=== PATIENT | female | born 1960 | race Caucasian/White ===

== ENCOUNTER 2018-08-22 15:09 | Emergency (ER) | payer BC, OTHER ==
--- NOTE | 2018-08-22 16:19 | CT ---
EXAMINATION TYPE: CT brain wo con DATE OF EXAM: 08/22/2018 HISTORY: Left frontal injury with headache. CT DLP: 1109.4 mGycm. Automated Exposure Control for Dose Reduction was Utilized. TECHNIQUE: CT scan of the head is performed without contrast. COMPARISON: None. FINDINGS: There is no acute intracranial hemorrhage or midline shift identified. There is diffuse v entricular and sulcal prominence consistent with mild diffuse age-related cerebral atrophy. Gee-whit e matter differentiation is maintained. There is prominence of CSF in the posterior aspect of the pos terior fossa without cerebellar volume loss. Suspect arachnoid cyst or megacisterna magna. Correlatio n with old outside CT or MRI would be beneficial. The globes are intact and the visualized sinuses ar e clear. There is small to moderate-sized acute left frontal scalp hematoma near axial image 35. Ad jacent calvarium is intact. IMPRESSION: No acute intracranial hemorrhage or midline shift. Small to moderate-sized acute left fr ontal scalp hematoma.
--- NOTE | 2018-08-22 16:33 | ED ---
General Adult HPI - General Chief complaint: Head Injury Stated complaint: Fall, head injury Time Seen by Provider: 08/22/18 15:23 Source: patient, RN notes reviewed Mode of arrival: ambulatory Limitations: no limitations - History of Present Illness Initial comments: Patient's a 58-year-old female presented to the emergency room today with a chief complaint of a head injury that occurred approximately 2 hours ago. Patient states that she was in the house when she tripped over a rock fall and 14 her head on the door jam. Patient does admit that she did not lose consciousness. She states that she does have some swelling to the left side of the forehead. She does admit to a mild headache. She states she did feel nauseous and wasn't dizzy a little bit. She states the symptoms have improved. States headache is gone. She states for is tender to palpation. She denies any other points or symptoms at this time. Patient denies any recent fever, chills, shortness of breath, chest pain, back pain, abdominal pain, nausea or vomiting, numbness or tingling, dysuria or hematuria, constipation or diarrhea, or any other complaints. - Related Data Home Medications Medication Instructions Recorded Confirmed Amitriptyline HCl [Elavil] 50 mg PO HS 08/22/18 08/22/18 Ergocalciferol [Vitamin D2] 50,000 unit PO ZIMMERMAN 08/22/18 08/22/18 Lansoprazole [Prevacid] 15 mg PO HS 08/22/18 08/22/18 Meloxicam 15 mg PO HS 08/22/18 08/22/18 Venlafaxine HCl [Effexor XR] 150 mg PO HS 08/22/18 08/22/18 cloNIDine HCL [Catapres] 0.1 mg PO HS 08/22/18 08/22/18 Allergies Allergy/AdvReac Type Severity Reaction Status Date / Time No Known Allergies Allergy Verified 08/22/18 16:07 Review of Systems ROS Statement: Those systems with pertinent positive or pertinent negative responses have been documented in the HPI. ROS Other: All systems not noted in ROS Statement are negative. Past Medical History Past Medical History: No Reported History History of Any Multi-Drug Resistant Organisms: None Reported Past Surgical History: Hysterectomy, Orthopedic Surgery Additional Past Surgical History / Comment(s): right rotator cuff repair Past Psychological History: Anxiety Smoking Status: Never smoker Past Alcohol Use History: Occasional Past Drug Use History: None Reported General Exam - General Exam Comments Initial Comments: General: The patient is awake and alert, in no distress, and does not appear acutely ill. Eye: Pupils are equal, round and reactive to light. Extra-ocular movements are intact. No nystagmus. There is normal conjunctiva bilaterally. No signs of icterus. Ears, nose, mouth and throat: There are moist mucous membranes and no oral lesions. Neck: The neck is supple, there is no tenderness or JVD. Cardiovascular: There is a regular rate and rhythm. No murmur, rub or gallop is appreciated. Respiratory: Lungs are clear to auscultation, respirations are non-labored, breath sounds are equal. No wheezes, stridor, rales, or rhonchi. Musculoskeletal: Normal ROM, no tenderness. Sensation intact. Strength 5/5. Pulses equal bilaterally 2+. Neurological: A&O x 3. CN II-XII intact, There are no obvious motor or sensory deficits. Coordination appears grossly intact. Speech is normal. Normal finger to nose testing. Normal rapid alternating movements. Strength 5/5 bilaterally both upper and lower extremity's. Normal gait. Skin: Skin is warm and dry and no rashes or lesions are noted. Psychiatric: Cooperative, appropriate mood & affect, normal judgment. Limitations: no limitations Course Vital Signs 08/22/18 15:25 Temperature 98.1 F Pulse Rate 94 Respiratory 18 Rate Blood Pressure 181/90 O2 Sat by Pulse 98 Oximetry Medical Decision Making - Medical Decision Making Computed tomography scan reviewed and negative for any acute abnormality other than frontal hematoma to scalp. Patient is well at this time. Normal neurological exam will be discharged home. Signs and symptoms of concussion were discussed in detail. She is advised to refrain from any physical activity and follow-up the family doctor over the next 2 days. Advised return if symptoms increase or worsen appropriate concerns. Disposition Clinical Impression: Hematoma of scalp, Concussion Disposition: HOME SELF-CARE Condition: Good Instructions: Concussion (ED) Additional Instructions: Please follow-up with family doctor in the next 2 days. Please return to emergency room if the symptoms increase or worsen or for any other concerns. Is patient prescribed a controlled substance at d/c from ED?: No Referrals: Milagro Winslow DO [Primary Care Provider] - 1-2 days Time of Disposition: 16:32
[2018-08-22 16:35] VITALS: BP 171/90; PULSE 87; RESP 18
[2018-08-22 16:40] VITALS: TEMP 97.3
== END 2018-08-22 16:39 | disposition home or self-care (01) ==
LOC: EC 15:09
DX: S06.0X0A Concussion without loss of consciousness, initial encounter (principal); F41.9 Anxiety disorder, unspecified; Z98.890 Other specified postprocedural states; Z79.1 Long term (current) use of non-steroidal anti-inflammatories (NSAID); Z79.899 Other long term (current) drug therapy; W01.10XA Fall on same level from slipping, tripping and stumbling with subsequent striking against unspecified object, initial encounter; Y92.009 Unspecified place in unspecified non-institutional (private) residence as the place of occurrence of the external cause; Y93.01 Activity, walking, marching and hiking
CPT/HCPCS: 70450; 99283

== ENCOUNTER → 2020-11-19 | Outpatient (CLI) | payer OTHER ==
[2020-11-19 16:42] LABS: Chol/HDL Ratio 4.33; LDL Cholesterol,Calculated 149.6 mg/dL (0.0-131.0); VLDL Calculation 40.4 mg/dL (5.00-40.00)
[2020-11-19 21:10] LABS: Hemoglobin A1C 5.6 % (4.0-6.0)
== END | disposition home or self-care (01) ==
LOC: LABWHC1 10:15
PROVIDERS: ATTEND Physician Assistant Medical
DX: E55.9 Vitamin D deficiency, unspecified (principal); F32.9 Major depressive disorder, single episode, unspecified; Z79.899 Other long term (current) drug therapy
CPT/HCPCS: 36415; 80061; 82306; 83036; 84443; 86850; 86900; 86901

== ENCOUNTER → 2020-11-19 | Outpatient (CLI) | payer OTHER ==
[2020-11-19 11:22] LABS: HCT 39.5 % (34.0-46.0); HGB 12.8 gm/dL (11.4-16.0); MCH 30.7 pg (25.0-35.0); MCHC 32.4 g/dL (31.0-37.0); MCV 94.6 fL (80.0-100.0); Mean Platelet Volume 8.3; Platelet Count 214 k/uL (150-450); RBC 4.18 m/uL (3.80-5.40); RDW 12.1 % (11.5-15.5); WBC 5.6 k/uL (3.8-10.6)
[2020-11-19 11:29] LABS: Appearance,Urine Clear (Clear); Bilirubin,Urine Negative (Negative); Blood,Urine Negative (Negative); Color,Urine Yellow; Glucose,Urine (UA) Negative (Negative); Ketones,Urine Negative (Negative); Leukocyte Esterase,Urine Moderate (Negative); Mucus,Urine Rare /hpf; Nitrite,Urine Negative (Negative); Protein,Urine Negative (Negative); RBC,Urine 1 /hpf (0-5); Specific Gravity,Urine 1.014 (1.001-1.035); Squamous Epithelial Cell,Urine 1 /hpf (0-4); Urobilinogen,Urine <2.0 mg/dL (<2.0); WBC,Urine 7 /hpf (0-5)
[2020-11-19 11:31] LABS: INR 0.9 (<1.2); Partial Thromboplastin Time 24.1 sec (22.0-30.0); Prothrombin Time 10.1 sec (9.0-12.0)
[2020-11-19 11:38] LABS: ALT 18 U/L (4-34); AST 25 U/L (14-36); African American GFR (CKD) >90 (>60 ml/min/1.73 sqM); Albumin 3.9 g/dL (3.5-5.0); Alkaline Phosphatase 79 U/L (38-126); Anion Gap 9 mmol/L; Blood Urea Nitrogen 15 mg/dL (7-17); Calcium 9.7 mg/dL (8.4-10.2); Carbon Dioxide 29 mmol/L (22-30); Chloride 102 mmol/L (98-107); Glucose 99 mg/dL (74-99); Non-African American GFR(CKD) >90 (>60 ml/min/1.73 sqM); Potassium 4.3 mmol/L (3.5-5.1); Sodium 140 mmol/L (137-145); Total Bilirubin 0.4 mg/dL (0.2-1.3); Total Protein 6.9 g/dL (6.3-8.2)
== END | disposition home or self-care (01) ==
LOC: LABWHC1 10:11
PROVIDERS: ATTEND Orthopaedic Surgery
DX: Z01.818 Encounter for other preprocedural examination (principal); Z01.812 Encounter for preprocedural laboratory examination; M16.11 Unilateral primary osteoarthritis, right hip
CPT/HCPCS: 36415; 80053; 81001; 85027; 85610; 85730; 87070; 93005

== ENCOUNTER 2020-11-25 07:53 | Observation (INO) | payer BC, OTHER ==
[2020-11-19 15:47] VITALS: BMI 41.9
[~2020-11-25 07:53] MED LIST: ACETAMINOPHEN TAB 500 MG TAB PO PRN; DEXAMETHASONE SOD PHOSPHATE 4 MG/ML 1 ML VIAL IV ONE; GABAPENTIN 300 MG CAP PO PRN; LIDOCAINE 1% (10MG/ML) FOR IV START INTRADERMA PRN; MELOXICAM 7.5 MG TAB PO PRN; MIDAZOLAM 2 MG/2 ML VIAL IV PRN; ONDANSETRON 4 MG/2 ML VIAL IVP ONE; TRANEXAMIC ACID 1,000 MG in SODIUM CHLORIDE 0.9% 100 ML IVPB PRN
[2020-11-25] MEDS: LACTATED RINGERS 1,000 ML IV SCH (08:51)
[2020-11-25] MEDS ORDERED: NEOSTIGMINE 1 MG/ML 10 ML VIAL ONE (09:03)
[2020-11-25] MEDS ORDERED: ROCURONIUM 10 MG/ML (5 ML VIAL) IV ONE (09:03)
[2020-11-25] MEDS ORDERED: MIDAZOLAM 2 MG/2 ML VIAL ONE (09:03)
[2020-11-25] MEDS ORDERED: SUCCINYLCHOLINE CHLORIDE 100 MG/5 ML SYR IV ONE (09:03)
[2020-11-25] MEDS ORDERED: TRANEXAMIC ACID 1,000 MG/10 ML VIAL ONE (09:03)
[2020-11-25] MEDS ORDERED: fentaNYL (PF) 50 MCG/ML 2 ML AMP ONE (09:03)
[2020-11-25] MEDS ORDERED: HYDROmorphone (PF) 1 MG/ML ONE (09:03)
[2020-11-25] MEDS ORDERED: SODIUM CHLORIDE 0.9% IRRIG 1,000 ML BTL IRRIGATION ONE (09:03)
[2020-11-25] MEDS ORDERED: SODIUM CHLORIDE 0.9% 100 ML BAG ONE (09:03)
[2020-11-25] MEDS ORDERED: LIDOCAINE 1% INJ 10MG/ML (20 ML MDV) ONE (09:03)
[2020-11-25] MEDS ORDERED: HEPARIN SODIUM,PORCINE 10,000 UNIT/ML 1 ML VIAL ONE (09:03)
[2020-11-25] MEDS ORDERED: PROPOFOL 10 MG/ML 20 ML VIAL IV ONE (09:03)
[2020-11-25] MEDS ORDERED: GLYCOPYRROLATE 0.2 MG/ML 2 ML VIAL ONE (09:03)
[2020-11-25] MEDS ORDERED: ceFAZolin 3,000 MG in SODIUM CHLORIDE 0.9% IRRIGATIO 3,000 ML IRRIGATION ONE (09:08)
[2020-11-25] MEDS: ROPIVACAINE 246.25 MG, EPINEPHrine 0.5 MG, KETOROLAC 30 MG, cloNIDine HCL/PF 80 MCG, WA... MISCELLANE PRN ×10 (09:22→10:01)
--- NOTE | 2020-11-25 10:31 | P.OP ---
Date of Procedure: 11/25/20 Preoperative Diagnosis: severe osteoarthritis right hip Postoperative Diagnosis: severe osteoarthritis right hip Procedure(s) Performed: right total hip arthroplasty with a direct anterior approach Implants: [employer] Polarstem standard size 4 [employer] R3, 3 hole hemispherical acetabular shell, 52 mm [employer] Reflection 6.5 mm cancellus screw, 20 mm 2 [employer] OR30, 40 mm ID, 52 mm OD, Oxinium dual mobility liner [employer] OR30, 22 mm ID, 40 mm OD, XLPE Dual mobility insert [employer] Oxinium femoral head 22 m, +0 All components were press-fit. The articulation is Oxinium on polyethylene. Anesthesia: GETA Surgeon: Prateek Serrano Fixed Income Director #1: Zaida Cortes Estimated Blood Loss (ml): 200 (71 mL returned with Cell Saver) Pathology: other (femoral head) Condition: stable Disposition: PACU Indications for Procedure: After failure of conservative treatment we discussed the surgical and nonsurgical treatment options at length. Patient wishes to proceed with a total hip arthroplasty with a direct anterior approach. Complications specific to this procedure were discussed at length, including but not limited to infection, leg length discrepancy, dislocation, nerve injury, and fracture. Also, because of the patient's high BMI, it was determined that a dual mobility insert would lessen her risk of dislocation. Covid-19 was also discussed at length with the patient, and they are aware of the current policies and procedures. The patient was given the option of delaying surgery, but they elect to proceed knowing these risks. Patient is aware of all these complications and informed consent was obtained Operative Findings: the operative findings are consistent with severe osteoarthritis of the right hip Description of Procedure: Patient was seen and evaluated in the preoperative area and the consent was reviewed. The operative site was marked with a skin marker. The patient was then brought to the operating room and given preoperative antibiotics intravenously. 1 g of Tranexamic acid was also given intravenously. A general anesthetic was administered by the anesthesia department. The patient was then placed on the [place] table with the bony prominences well-padded. The hip area was then prepped with a ChloraPrep solution and draped in the usual sterile fashion. A universal timeout was then performed, which confirmed the patient's name, surgical site, ALLERGIES, and procedure being performed on the consent. Next the incision site was located at 1 cm distal to the anterior superior iliac spine along the flexion crease of the right hip. The skin and subcutaneous tissues were sharply incised. Incision was carefully dissected down to the fascia overlying the tensor fascia suzan muscle. This fascia was then incised in line with the incision. Care was taken to stay laterally in order to avoid injuring the lateral femoral cutaneous nerve. Next, using blunt finger dissection, the tensor fascia suzan muscle was dissected off its investing fascia. The muscle was then carefully retracted laterally with a cobra retractor over the lateral neck of the femur. Next, the circumflex vessels were identified and cauterized using the AquaMantis device. The anterior hip capsule was then exposed. The capsule was then opened and an inverted T fashion. Cobra retractors were then placed intracapsularly. The retractors were maintained intracapsular throughout the procedure. The proximal femur was then visualized. A small amount of traction was placed on the leg. The femoral neck was then osteotomized appropriate level above the lesser trochanter. A small wedge of bone was then removed from the remaining femoral head. Next, using a corkscrew the femoral head was removed from the acetabulum. On gross visual inspection, the femoral head had complete loss of articular cartilage and multiple periarticular osteophytes. The femoral head was then measured. Attention was then turned to the acetabulum. The acetabulum was exposed and any remaining labrum was excised. Sequential reaming of the acetabulum was performed using fluoroscopic guidance until there was a good bed of bleeding cancellus bone. When the appropriate size was reached, a trial was then placed. The position and fit of the trial was checked with fluoroscopy. The trial was then removed. Then, using fluoroscopic guidance, the final implant was impacted at 20 of anteversion and 40 of abduction, and fully seated in the acetabulum. 2 screws were then placed in the acetabulum. Again fluoroscopy was used to check position of the screws. Next, the liner was then impacted, with a 20 elevated liner located in the anterior superior quadrant. Component locking was confirmed. Attention was then directed to the femur. With the aid of the [place] table, the femur was externally rotated to approximately 130, extended, and adducted under the opposite leg. A side hook was then placed under the proximal femur, and the side hook elevator was used to elevate the proximal femur while releasing the capsule. Retractors were then placed. A capsular release was performed, as well as a release of the conjoined tendon, which afforded excellent visualization of the proximal femur. Next, a box osteotome was used to lateralize the proximal femur. A spring former hand was then used to locate the femoral canal. Sequential broaching was then performed with appropriate size which afforded excellent fixation in the proximal femur. A trial was then placed with appropriate head and neck, and the hip was gently reduced with the aid of the [place] table. Fluoroscopy was then used to check position of the components, as well as to ensure equal leg lengths. The hip was then gently dislocated and the trials were then removed. Final implants were then impacted and the hip was again reduced. Final fluoroscopic x-rays confirmed that the components were in anatomic position, as well as equal leg lengths. The hip was also taken through range of motion, and found to be stable. The hip was then copiously irrigated with antibiotic solution with pulsatile lavage. The hip was then irrigated with Irrisept solution. The soft tissues were then injected with a ropivacaine solution, which consisted of 246.25 mg of ropivacaine, 0.5 mg of epinephrine, 30 mg of Toradol, 80 g of clonidine, and 48.45 mL of sterile water, for a total of 100 mL of fluid injected. A second dose of 1 g of Tranexamic acid was also given intravenously. Any blood collected by Cell Saver was then returned to the patient at this time. The fascia was then closed with 2-0 strata fix suture. The subcutaneous tissue was closed with 3-0 Vicryl. The subcuticular tissue was closed with 3-0 strata fix suture. The skin was then closed with Exofin skin glue. After the glue and dried, and Optifoam silver impregnated dressing was applied. The patient was then transferred to the recovery room in stable condition. The campus administrative assistant DANNI Fernandez was required due to the complexity of surgery, and the need for skilled surgical technology instructor for positioning, draping, exposure, retraction, and closure of the wound.
[2020-11-25] MEDS ORDERED: LACTATED RINGERS 1,000 ML IV ONE (10:35)
--- NOTE | 2020-11-25 10:36 | FL ---
EXAMINATION TYPE: FL guidance operating room DATE OF EXAM: 11/25/2020 HISTORY: Fluoroscopy time 17 seconds of fluoroscopy provided. IMPRESSION: 1. Fluoroscopy time.
--- NOTE | 2020-11-25 10:36 | XR ---
EXAMINATION TYPE: XR Hip Limited RT DATE OF EXAM: 11/25/2020 COMPARISON: NONE HISTORY: Postop TECHNIQUE: One view submitted. FINDINGS: There is postsurgical change in near anatomic alignment. There is soft tissue edema and emphysema. IMPRESSION: 1. Postoperative change. Appears in near-anatomic alignment.
[2020-11-25] MEDS ORDERED: HYDROmorphone 1 MG/ML 1 ML SYRINGE IVP PRN (10:57)
[2020-11-25] MEDS ORDERED: ONDANSETRON 4 MG/2 ML VIAL IVP PRN (10:57)
[2020-11-25] MEDS ORDERED: NALOXONE 0.4 MG/ML 1 ML VIAL IV PRN (10:57)
[2020-11-25] MEDS ORDERED: HYDROmorphone 0.2 MG/1 ML SYRINGE IVP PRN (10:57)
[2020-11-25] MEDS ORDERED: MAGNESIUM HYDROXIDE 2,400 MG/10 ML CUP PO PRN (10:57)
[2020-11-25] MEDS ORDERED: HYDROcodone/APAP 5-325MG 1 EACH TAB PO PRN (10:57)
[2020-11-25] MEDS ORDERED: diazePAM 5 MG TAB PO PRN (10:57)
[2020-11-25] MEDS ORDERED: HYDROmorphone 0.5 MG/0.5 ML SYRINGE IVP PRN (10:57)
[2020-11-25] MEDS: HYDROmorphone 0.5 MG/0.5 ML SYRINGE IVP PRN ×4 (13:15→13:34)
[2020-11-25] MEDS: HYDROcodone/APAP 5-325MG 1 EACH TAB PO PRN ×2 (17:28→22:28)
[2020-11-25] MEDS: SODIUM CHLORIDE 0.9% 1,000 ML IV SCH (17:29)
[2020-11-25] MEDS ORDERED: CYCLOBENZAPRINE 10 MG TAB PO PRN (19:27)
[2020-11-25] MEDS: ASPIRIN 325 MG TAB PO SCH (20:31)
[2020-11-25] MEDS: AMITRIPTYLINE HCL 50 MG TAB PO SCH (20:31)
[2020-11-25] MEDS: SENNOSIDES-DOCUSATE SODIUM 1 EACH TAB PO SCH (20:31)
[2020-11-25] MEDS: cloNIDine HCL 0.1 MG TAB PO SCH (20:31)
[2020-11-26] MEDS: SODIUM CHLORIDE 0.9% 1,000 ML IV SCH ×2 (04:47→11:23)
[2020-11-26] MEDS: LACTATED RINGERS 1,000 ML IV SCH (04:47)
[2020-11-26] MEDS: HYDROcodone/APAP 5-325MG 1 EACH TAB PO PRN ×2 (05:08→10:36)
[2020-11-26] MEDS: VENLAFAXINE HCL ER 150 MG CAP PO SCH (07:33)
[2020-11-26] MEDS: PANTOPRAZOLE 40 MG TABLET PO SCH (07:33)
[2020-11-26] MEDS: ASPIRIN 325 MG TAB PO SCH ×2 (07:33→20:20)
--- NOTE | 2020-11-26 08:26 | P.DS ---
Providers Expected date of discharge: 11/26/20 Attending physician: Prateek Serrano Consults: 11/25/20 10:57 Consult Physician Routine Consulting Provider: Jameson Martinez Consult Reason/Comments: medical management Do you want consulting provider notified?: Yes Primary care physician: Jameson Martinez MD - Discharge Diagnosis(es) (1) Osteoarthritis of right hip Current Visit: Yes Status: Acute (2) S/P total hip arthroplasty Current Visit: Yes Status: Acute Hospital Course: This is a 60-year-old female with known history of degenerative arthritis of the right hip. The patient presented for evaluation as an outpatient. After discussion and consideration patient elects to proceed with total hip arthroplasty. The patient is seen preoperatively by Dr. Serrano and medically cleared for surgery by their primary care physician. Patient is admitted to [facility] on 11/25/2020 for total hip arthroplasty. The procedure is performed without complication or sequelae. The patient is doing well postoperatively. Labs and vital signs are stable on day of discharge. On day of discharge patient's hip incision is healing well. There is minimal erythema. There is no drainage noted at this time. There is minimal soft tissue swelling to the hip and thigh. Patient has full foot and ankle motion without difficulty or pain. Calf is soft and nontender to palpation. Neurovascular status to the right lower extremity is intact. Patient is discharged home in good condition. Opioid start talking form is reviewed and signed. Please see med rec for accurate list of home medications. Plan - Discharge Summary Discharge Rx Participant: Yes New Discharge Prescriptions: New Aspirin 325 mg PO BID #60 tab Sennosides [Senokot] 2 tab PO DAILY PRN #60 tablet PRN Reason: Constipation HYDROcodone/APAP 7.5-325MG [Holman 7.5-325] 1 - 2 tab PO Q6H PRN #32 tab PRN Reason: Pain No Action cloNIDine HCL [Catapres] 0.1 mg PO HS Ergocalciferol [Vitamin D2] 50,000 unit PO TU Amitriptyline HCl [Elavil] 50 mg PO HS Cyclobenzaprine [Flexeril] 10 mg PO TID PRN PRN Reason: Pain Venlafaxine HCl ER [Effexor Xr] 150 mg PO DAILY Lansoprazole 30 mg PO DAILY Meloxicam [Mobic] 7.5 mg PO BID HYDROcodone/APAP 7.5-325MG [Holman 7.5-325] 1 tab PO Q6HR PRN PRN Reason: Pain Aspirin [Adult Low Dose Aspirin EC] 81 mg PO DAILY Discharge Medication List Amitriptyline HCl [Elavil] 50 mg PO HS 08/22/18 [History] Ergocalciferol [Vitamin D2] 50,000 unit PO TU 08/22/18 [History] cloNIDine HCL [Catapres] 0.1 mg PO HS 08/22/18 [History] Aspirin [Adult Low Dose Aspirin EC] 81 mg PO DAILY 11/19/20 [History] Cyclobenzaprine [Flexeril] 10 mg PO TID PRN 11/19/20 [History] HYDROcodone/APAP 7.5-325MG [Holman 7.5-325] 1 tab PO Q6HR PRN 11/19/20 [History] Lansoprazole 30 mg PO DAILY 11/19/20 [History] Meloxicam [Mobic] 7.5 mg PO BID 11/19/20 [History] Venlafaxine HCl ER [Effexor Xr] 150 mg PO DAILY 11/19/20 [History] Aspirin 325 mg PO BID #60 tab 11/26/20 [Rx] HYDROcodone/APAP 7.5-325MG [Holman 7.5-325] 1 - 2 tab PO Q6H PRN #32 tab 11/26/20 [Rx] Sennosides [Senokot] 2 tab PO DAILY PRN #60 tablet 11/26/20 [Rx] Follow up Appointment(s)/Referral(s): Prateek Serrano DO [Doctor of Osteopathic Medicine] - 2 Weeks Activity/Diet/Wound Care/Special Instructions: Weightbearing as tolerated with walker. Leave dressing intact. Dressing may be removed by home care nurse or by patient in 10 days. May shower with dressing on. Please take aspirin 325mg twice daily for 30 days to prevent blood clots. Recommend use of compression stockings daily until follow up to help prevent swelling and blood clots. May remove at night before sleeping. Please follow-up with [facility] in 2 weeks and call with any questions or concerns, . Discharge Disposition: HOME WITH HOME HEALTH SERVICES
[2020-11-26] MEDS ORDERED: MELOXICAM 7.5 MG TAB PO SCH (09:00)
[2020-11-26 10:30] LABS: Basophils # (A) 0.01 X 10*3/uL (0.00-0.10); Basophils % (A) 0.1 %; Eosinophils # (A) 0.01 X 10*3/uL (0.04-0.35); Eosinophils % (A) 0.1 %; HCT 32.2 % (37.2-46.3); HGB 10.1 g/dL (12.0-15.0); Lymphocytes # (A) 1.39 X 10*3/uL (0.90-5.00); Lymphocytes % (A) 14.9 %; MCH 30.1 pg (27.0-32.0); MCHC 31.4 g/dL (32.0-37.0); MCV 96.1 fL (80.0-97.0); Mean Platelet Volume 11.4 fL (9.5-12.2); Monocytes # (A) 0.81 X 10*3/uL (0.20-1.00); Monocytes % (A) 8.7 %; Neutrophils # (A) 7.07 X 10*3/uL (1.80-7.70); Neutrophils % (A) 75.9 %; Platelet Count 219 X 10*3/uL (140-440); RBC 3.35 X 10*6/uL (4.10-5.20); RDW 12.6 % (11.5-14.5); WBC 9.32 X 10*3/uL (4.50-10.00)
[2020-11-26] MEDS ORDERED: HYDROcodone/APAP 7.5-325MG 1 EACH TAB PO PRN (14:00)
[2020-11-26] MEDS: KETOROLAC 15 MG/ML 1 ML VIAL IVP PRN ×2 (14:17→20:20)
[2020-11-26] MEDS: HYDROcodone/APAP 7.5-325MG 1 EACH TAB PO PRN (15:29)
[2020-11-26] MEDS: hydrOXYzine pamoate 25 MG CAP PO PRN ×2 (15:29→20:20)
[2020-11-26] MEDS: AMITRIPTYLINE HCL 50 MG TAB PO SCH (20:20)
[2020-11-26] MEDS: cloNIDine HCL 0.1 MG TAB PO SCH (20:20)
[2020-11-26] MEDS: SENNOSIDES-DOCUSATE SODIUM 1 EACH TAB PO SCH (20:20)
[2020-11-27] MEDS: LACTATED RINGERS 1,000 ML IV SCH (00:32)
[2020-11-27] MEDS: SODIUM CHLORIDE 0.9% 1,000 ML IV SCH (00:32)
[2020-11-27] MEDS: HYDROcodone/APAP 7.5-325MG 1 EACH TAB PO PRN ×2 (00:40→10:58)
[2020-11-27] MEDS: KETOROLAC 15 MG/ML 1 ML VIAL IVP PRN ×2 (05:13→13:41)
[2020-11-27] MEDS: ASPIRIN 325 MG TAB PO SCH (07:42)
[2020-11-27] MEDS: VENLAFAXINE HCL ER 150 MG CAP PO SCH (07:42)
[2020-11-27] MEDS: PANTOPRAZOLE 40 MG TABLET PO SCH (07:43)
[2020-11-27 09:34] VITALS: BP 124/77; PULSE 85; RESP 17; TEMP 98.1
== END 2020-11-27 14:18 | disposition home health service (06) ==
LOC: OR 07:53 → 4SSUR 10:36 → OR 11-27 07:45 → 4SSUR 11-27 07:45
PROVIDERS: ADMIT Family Medicine; ATTEND Orthopaedic Surgery
DX: M16.11 Unilateral primary osteoarthritis, right hip (principal); K21.9 Gastro-esophageal reflux disease without esophagitis; E66.01 Morbid (severe) obesity due to excess calories; Z68.41 Body mass index [BMI] 40.0-44.9, adult; M19.90 Unspecified osteoarthritis, unspecified site; F41.1 Generalized anxiety disorder; F32.9 Major depressive disorder, single episode, unspecified; Z79.1 Long term (current) use of non-steroidal anti-inflammatories (NSAID); Z79.899 Other long term (current) drug therapy; Z79.891 Long term (current) use of opiate analgesic; Z79.82 Long term (current) use of aspirin; Z87.891 Personal history of nicotine dependence
CPT/HCPCS: 97110; 97161; 97535; 97165; 86891; 85025; 88300; 73501; 27130; G0378; C1776; J2250; J0171; J1644; J1100; J2710; J0690 ×2; J2405; J2001; J3010; J1885 ×3; J1170 ×2; J2795; J0330; J2704; J0735; 86850; 86900; 86901

== ENCOUNTER → 2023-04-29 | Outpatient (CLI) | payer OTHER ==
--- NOTE | 2023-05-02 07:53 | MM ---
Reason for Exam: Screening (asymptomatic). Last mammogram was performed 10 year(s) and 10 month(s) ago. Patient History: Menarche at age 14. First Full-Term at age 25. Hysterectomy at age 31. Postmenopausal. Risk Values: Leesa 5 year model risk: 1.3%. NCI Lifetime model risk: 6.4%. Prior Study Comparison: 09/16/2003 Bilateral Screening Mammogram, [facility]. 08/03/2008 Bilateral Screening Mammogram, [facility]. 08/06/2008 Right Diagnostic Mammogram, [facility]. 06/12/2012 Bilateral Screening Mammogram, [facility]. Tissue Density: The breast tissue is almost entirely fat. Findings: Analyzed By CAD. There is no suspicious group of microcalcifications or new suspicious mass in either breast. Overall Assessment: Negative, BI-RAD 1 Management: Screening Mammogram of both breasts in [address] [facility] will attempt to contact patient to return for supplemental views and ultrasound if indicated. Patient should continue monthly self-breast exams. A clinical breast exam by your physician is recommended on an annual basis. This exam should not preclude additional follow-up of suspicious palpable abnormalities. Note on Leesa scores and lifetime risk: 1. A Leesa score greater than 3% is considered moderate risk. If this is the case, consider specialist referral to assess eligibility for a risk reducing agent. 2. If overall lifetime risk for the development of breast cancer is 20% or higher, the patient may qualify for future screening with alternating mammogram and breast MRI. Electronically signed and approved by: Daquan Natarajan DO
== END | disposition home or self-care (01) ==
LOC: RADMAMWWP 10:37
PROVIDERS: ATTEND Family Medicine
DX: Z12.31 Encounter for screening mammogram for malignant neoplasm of breast (principal); Z78.0 Asymptomatic menopausal state
CPT/HCPCS: 77067